=== PATIENT | male | born 1965 | race Caucasian/White ===

== ENCOUNTER 2021-01-02 18:00 | Inpatient (IN) | payer MEDICAID, MEDICARE ==
[2021-01-02] VITALS (8 sets, daily range): BP systolic 130–162; BP diastolic 83–103
[~2021-01-02] VITALS: Ht 182.9 cm; Wt 124.0 kg
--- NOTE | 2021-01-02 18:22 | NUR ---
Patient arrived from [facility] via EMS. Patient is Alert and oriented x4 VS stable. Dr. moore and consult notified. will monitor.
[2021-01-02 19:15] LABS: ALBUMIN 3.7 g/dL (3.4-5.0); ALBUMIN/GLOBULIN RATIO 0.9 (1.0-1.7); CALCIUM 7.7 mg/dL (8.5-10.1); CREATININE 0.6 mg/dL (0.7-1.3); GFR 138.9; MAGNESIUM 1.9 mg/dL (1.8-2.4); POTASSIUM 4.4 mmol/L (3.5-5.1); TOTAL BILIRUBIN 1.5 mg/dL (0.2-1.0); TOTAL PROTEIN 7.7 g/dL (6.4-8.2)
--- NOTE | 2021-01-02 20:00 | NUR ---
Bladder scanned patient with max 500cc urine retention, patient says he has no urge to go. Sotelo catheter inserted per Dr. Alegria, immediate 450cc of urine out. Spoke with Dr. Alegria regarding critical sodium, at this point would just like NS 100cc/hr, recheck sodium routinely in AM.
[2021-01-02] MEDS: IV NORMAL SALINE 1000ML BAG 1,000 ML IV SCH (20:13)
[2021-01-02] MEDS: BENZONATATE 100 MG CAPSULE. PO PRN (21:17)
--- NOTE | 2021-01-02 21:27 | PDOC1 ---
History and Physical Date of Service: DOS: DATE: 01/02/21 TIME: 21:25 Chief Complaint: Chief Complain: Fatigue History of Present Illness: HPI: 55-year-old male with past medical history of hyponatremia, pituitary adenoma status post resection, NHL status post chemotherapy and currently in remission who comes in with fatigue for the past 3 days. He says that he drinks lots of water and juice every day but this is not different from his normal. He also complains of cough with some mild production. He was actually seen at [facility] in 2019 for the same reason with low sodium and nausea vomiting that resolved. He was asked to follow-up with endocrinology for MRI evaluation of his pituitary gland but he never followed up. Denies fevers, chest pain, abdominal pain, diarrhea, seizure, confusion or headaches. Past Medical/Surgical History: PMH/PSH: Pituitary adenoma status post resection, non-Hodgkin's lymphoma currently in remission. He was treated with chemotherapy from oncologist in [facility]. History of hypothyroidism history of hyponatremia in 2019 Allergies: Allergies: Coded Allergies: No Known Drug Allergies (Unverified , 10/11/13) Family History: Family History: Reviewed with no relevant findings Social History: Social History: Denies any alcohol, drug or tobacco abuse Current Medications: Current Medications Current Medications Sodium Chloride 1,000 ml @ 100 mls/hr Q10H IV Last administered on 01/02/21at 20:13; Start 01/02/21 at 20:00 Benzonatate (Tessalon Perle) 100 mg PRN Q8HRS PRN PO COUGH Last administered on 01/02/21at 21:17; Start 01/02/21 at 21:15 Active Scripts Active Reported No Known Medications Prior To Admisstion (Info) Each 1 Each 1X ROS: Review of Systems Review of System REVIEW OF SYSTEMS: GENERAL: Positive for fatigue SKIN: No bruising, hair changes or rashes. EYES: No blurred, double or loss of vision. NOSE AND THROAT: No history of nosebleeds, hoarseness or sore throat. HEART: No history of palpitations, chest pain or shortness of breath on exertion. LUNGS: Denies cough, hemoptysis, wheezing or shortness of breath. GASTROINTESTINAL: Denies changes in appetite, nausea, vomiting, diarrhea or constipation. GENITOURINARY: No history of frequency, urgency, hesitancy or nocturia. NEUROLOGIC: Denies history of numbness, tingling, or tremor. PSYCHIATRIC: No history of panic, anxiety or depression. ENDOCRINE: No history of heat or cold intolerance, polyuria or polydipsia. EXTREMITIES: Denies joint pain, pain on walking or stiffness. Physical Exam: Vital Signs: Vital Signs Date Time Temp Pulse Resp B/P (MAP) Pulse Ox O2 Delivery O2 Flow Rate FiO2 01/02/21 20:00 Room Air 01/02/21 18:30 74 18 162/103 (122) 97 01/02/21 18:15 97.5 97.5 Physcial Exam: General: Well developed, well nourished, no acute distress, well appearing HEENT: Pupils equally round and reactive to light, EOMI, no discharge, normal conjunctiva Neck: Supple, no nuchal rigidity, no JVD, trachea midline, no tenderness Cardiac: RRR, no murmurs, no gallops, no rubs Chest/Lungs: CTAB, no wheeze, no rhonchi, no crackles Abdomen: soft, non-distended, no guarding, no peritoneal signs, non-tender Back: No tenderness Extremities: no edema, pulses intact, non-tender,capillary refill <3 sec bilateral upper and lower extremities, Neuro: Alert and oriented x 4, no focal deficits, normal speech Labs: Labs: Laboratory Tests Test 01/02/21 18:35 Sodium Level 111 mmol/L (136-145) Potassium Level 4.4 mmol/L (3.5-5.1) Chloride Level 79 mmol/L (98-107) Carbon Dioxide Level 26 mmol/L (21-32) Anion Gap 6 (6-14) Blood Urea Nitrogen 8 mg/dL (8-26) Creatinine 0.6 mg/dL (0.7-1.3) Estimated GFR (Cockcroft-Gault) 138.9 BUN/Creatinine Ratio 13 (6-20) Glucose Level 85 mg/dL (70-99) Calcium Level 7.7 mg/dL (8.5-10.1) Magnesium Level 1.9 mg/dL (1.8-2.4) Total Bilirubin 1.5 mg/dL (0.2-1.0) Aspartate Amino Transf (AST/SGOT) 119 U/L (15-37) Alanine Aminotransferase (ALT/SGPT) 68 U/L (16-63) Alkaline Phosphatase 90 U/L (46-116) Total Protein 7.7 g/dL (6.4-8.2) Albumin 3.7 g/dL (3.4-5.0) Albumin/Globulin Ratio 0.9 (1.0-1.7) Laboratory Tests Test 01/02/21 18:35 Sodium Level 111 mmol/L (136-145) Potassium Level 4.4 mmol/L (3.5-5.1) Chloride Level 79 mmol/L (98-107) Carbon Dioxide Level 26 mmol/L (21-32) Anion Gap 6 (6-14) Blood Urea Nitrogen 8 mg/dL (8-26) Creatinine 0.6 mg/dL (0.7-1.3) Estimated GFR (Cockcroft-Gault) 138.9 BUN/Creatinine Ratio 13 (6-20) Glucose Level 85 mg/dL (70-99) Calcium Level 7.7 mg/dL (8.5-10.1) Magnesium Level 1.9 mg/dL (1.8-2.4) Total Bilirubin 1.5 mg/dL (0.2-1.0) Aspartate Amino Transf (AST/SGOT) 119 U/L (15-37) Alanine Aminotransferase (ALT/SGPT) 68 U/L (16-63) Alkaline Phosphatase 90 U/L (46-116) Total Protein 7.7 g/dL (6.4-8.2) Albumin 3.7 g/dL (3.4-5.0) Albumin/Globulin Ratio 0.9 (1.0-1.7) Images: Images All images reviewed from [facility] Chest x-ray remarkable for atypical pneumonia please see impressions for details Assessment/Plan Assessment/Plan Generalized weakness Failure to thrive Acute electrolyte derangementsevere hyponatremia Community-acquired pneumonia, possible gram-negative organisms, possible aspiration Polydipsia Elevated AST ALT ratio History of pituitary adenoma Concern for adrenal insufficiency History of hypothyroidism Admit to hospitalist service for further management Continue ICU monitoring due to severe low sodium Trend sodium every 12 Hypertonic saline Nephrology consult PT OT Continue empiric IV antibiotics Lovenox for DVT prophylaxis Protonix GI prophylaxis ADA diet CODE STATUS full Discussed with RN and SW Disposition continue ICU care DPOA: A total of 55 minutes of critical care time was spent in reviewing chart, labs, and images. Discussed with RN and SW. Justifications for Admission Other Justification RISHI TRIPATHI MD Jan 02, 2021 21:27
[2021-01-02] MEDS: LIDOCAINE (700MG/PATCH) PATCH. TD PRN (23:09)
[2021-01-02] MEDS ORDERED: ACETAMINOPHEN 325 MG TABLET. PO PRN (23:15)
[2021-01-02] MEDS ORDERED: METHOCARBAMOL 500 MG TABLET PO PRN (23:15)
[2021-01-03] VITALS (16 sets, daily range): BP systolic 116–169; BP diastolic 65–91
[2021-01-03] MEDS ORDERED: CALCIUM CARBONATE 500 MG TAB.CHEW PO PRN (03:15)
[2021-01-03] MEDS: IV NORMAL SALINE 1000ML BAG 1,000 ML IV SCH (06:10)
[2021-01-03] MEDS: guaiFENesin ORAL 200 MG/10 ML LIQUID. PO PRN ×3 (06:10→21:04)
[2021-01-03 08:39] LABS: ALBUMIN 3.5 g/dL (3.4-5.0); CALCIUM 7.8 mg/dL (8.5-10.1); CREATININE 0.6 mg/dL (0.7-1.3); GFR 138.9; POTASSIUM 4.5 mmol/L (3.5-5.1); TOTAL BILIRUBIN 1.5 mg/dL (0.2-1.0)
[2021-01-03 08:53] LABS: HEMATOCRIT 37.7 % (39.0-53.0); HEMOGLOBIN 13.5 g/dL (13.0-17.5); RED BLOOD COUNT 4.34 x10^6/uL (4.30-5.70); RED CELL DISTRIBUTION WIDTH 12.3 % (11.5-14.5); WHITE BLOOD COUNT 7.3 x10^3/uL (4.0-11.0)
[2021-01-03] MEDS: BENZONATATE 100 MG CAPSULE. PO PRN ×2 (08:58→21:04)
[2021-01-03] MEDS: LIDOCAINE (700MG/PATCH) PATCH. TD PRN (08:58)
[2021-01-03] MEDS ORDERED: SODIUM CHLORIDE 3 % 500 ML IV PRN (09:15)
--- NOTE | 2021-01-03 09:55 | PDOC2 ---
CONSULT Date of Consult Date of Consult DATE: 01/03/21 TIME: 09:55 History of Present Illness Reason for Visit: Patient is a 55 yo CM presented to [facility] ER on 01/02 with c/o Fatigue , going on for past 3 days without any inciting event . Denies any sick Contacts . He was having vague diffuse body aches and Occ Cramps He had low Na couple of years ago- was hospitalized at [facility]- Patient and don't recall any details . He is Unvaccinated against Covid Denies any N/V/D.No abdominal pain. No CP or SOB. No F/C. Denies Urinary complaints . Currently not taking any meds at home. No OTC health supplements. No antidepressants. Normal Salt in diet, he acknowledges drinking a plenty of Fluid > 2 lts water plus Juice etc , but this is not new. He denies ETOH- quit 5-6 years ago, states never smoked. No Wt loss, No night Sweats . No LE edema. Currently feeling tired, hasnt sleep for last few nights, requesting to give him something to sleep No neurological symptoms, No Seizures . No PILLAI, Blurred vision I reviewed records from [facility] from 2019 - he was admitted with Na of 118 admitted with N/V , hyponatremia resolved at ri- seen by Dr Giraldo Per his old records from 2019 there is also mention of his History of Pituitary tumor that was removed and NHL was seen at [facility] - was told by Oncology he was in remission. He hasnt seen a provider in past 3-4 years , last provider was the Oncologist Past Medical History Past Medical History NHL- In Remission Hx of Pituitary Tumor - Resected Past Surgical History Past Surgical History Pituitary tumor Resection Family History Family History Non contributory Social History Social History Quit ETOH 5-6 years back Denies Smoking, Tobacco or Illicit Drugs Lives with (? Significant other ) No PCP Current Medications Current Medications Current Medications Sodium Chloride 1,000 ml @ 100 mls/hr Q10H IV Last administered on 01/03/21at 06:10; Start 01/02/21 at 20:00; Stop 01/03/21 at 09:13; Status DC Benzonatate (Tessalon Perle) 100 mg PRN Q8HRS PRN PO COUGH Last administered on 01/03/21at 08:58; Start 01/02/21 at 21:15 Methocarbamol (Robaxin) 500 mg PRN Q8HRS PRN PO MUSCLE SPASMS; Start 01/02/21 at 23:15 Lidocaine (Lidoderm) 1 patch PRN DAILY PRN TD TOPICAL PAIN Last administered on 01/03/21at 08:58; Start 01/02/21 at 23:15 Acetaminophen (Tylenol) 650 mg PRN Q6HRS PRN PO MILD PAIN / TEMP > 100.3'F Last administered on 01/02/21at 23:09; Start 01/02/21 at 23:15 Calcium Carbonate/ Glycine (Tums) 500 mg PRN AFTMEALHC PRN PO INDIGESTION Last administered on 01/03/21at 03:24; Start 01/03/21 at 03:15 Guaifenesin (Robitussin) 200 mg PRN Q4HRS PRN PO COUGH Last administered on 01/03/21at 08:58; Start 01/03/21 at 06:15 Sodium Chloride 500 ml @ 50 mls/hr CONT PRN IV SEE I/O RECORD; Start 01/03/21 at 09:15; Stop 01/03/21 at 09:36; Status DC Sodium Chloride 500 ml @ 50 mls/hr CONT PRN IV SEE I/O RECORD; Start 01/03/21 at 09:45 Active Scripts Active Reported No Known Medications Prior To Admisstion (Info) Each 1 Each MC 1X Allergies Allergies: Coded Allergies: No Known Drug Allergies (Unverified , 10/11/13) ROS Review of System As per HPI, rest of the ROS is negative Physical Exam Physical Exam General NAD, propped up in bed, appears tired HEEN OM moist, On o2 by NC Neck Supple Lungs CTA , Non labored CV S1S2, No M/R/G Abdomen obese , NT, Soft Sotelo placed , No CVA or SP tenderness Neuro AxOx3, grossly normal Derm No Rash Ext No LE edema, No cyanosis Vital Signs Vital Signs Date Time Temp Pulse Resp B/P (MAP) Pulse Ox O2 Delivery O2 Flow Rate FiO2 01/03/21 09:00 79 18 148/90 (109) 98 Room Air 01/03/21 08:00 97.5 97.5 Assessment & Plan HypoNatremia- severe, No improvement with IV NS, switch to Hypertonic 3%. Patient Asymptomatic except Fatigue . Strict Monitoring , I/O Order TSH , serum Cortisol AM (No tripathi done at [facility] or at [facility]) ; Serum osm , Urine osm and Urine Lytes still pending No cirrhosis, ETOH, DM , CHF , Psych meds or Smoking Hx. Drinks large amount of fluids . Reviewed Records from [facility] from 2019 Hx of NHL and Pituitary tumor (Resected ) , CxR Atypical pneumonia . Defer further TRIPATHI to primary Urinary retention - Ordered Bladder scan last evening with 500 mls of Urine , Sotelo Placed Atypical pneumonia - reported on Cxr, deferred to primary Hx of NHL in remission per Patient and Hx of pituitary tumor Post resection years ago Elevated LFT's - defer to primary Labs Labs Laboratory Tests Test 01/02/21 18:35 01/03/21 08:15 Sodium Level 111 mmol/L (136-145) 111 mmol/L (136-145) Potassium Level 4.4 mmol/L (3.5-5.1) 4.5 mmol/L (3.5-5.1) Chloride Level 79 mmol/L (98-107) 81 mmol/L (98-107) Carbon Dioxide Level 26 mmol/L (21-32) 25 mmol/L (21-32) Anion Gap 6 (6-14) 5 (6-14) Blood Urea Nitrogen 8 mg/dL (8-26) 8 mg/dL (8-26) Creatinine 0.6 mg/dL (0.7-1.3) 0.6 mg/dL (0.7-1.3) Estimated GFR (Cockcroft-Gault) 138.9 138.9 BUN/Creatinine Ratio 13 (6-20) 13 (6-20) Glucose Level 85 mg/dL (70-99) 82 mg/dL (70-99) Calcium Level 7.7 mg/dL (8.5-10.1) 7.8 mg/dL (8.5-10.1) Magnesium Level 1.9 mg/dL (1.8-2.4) 1.9 mg/dL (1.8-2.4) Total Bilirubin 1.5 mg/dL (0.2-1.0) 1.5 mg/dL (0.2-1.0) Aspartate Amino Transf (AST/SGOT) 119 U/L (15-37) 124 U/L (15-37) Alanine Aminotransferase (ALT/SGPT) 68 U/L (16-63) 68 U/L (16-63) Alkaline Phosphatase 90 U/L (46-116) 86 U/L (46-116) Total Protein 7.7 g/dL (6.4-8.2) 7.0 g/dL (6.4-8.2) Albumin 3.7 g/dL (3.4-5.0) 3.5 g/dL (3.4-5.0) Albumin/Globulin Ratio 0.9 (1.0-1.7) 1.0 (1.0-1.7) White Blood Count 7.3 x10^3/uL (4.0-11.0) Red Blood Count 4.34 x10^6/uL (4.30-5.70) Hemoglobin 13.5 g/dL (13.0-17.5) Hematocrit 37.7 % (39.0-53.0) Mean Corpuscular Volume 87 fL (79-100) Mean Corpuscular Hemoglobin 31 pg (25-35) Mean Corpuscular Hemoglobin Concent 36 g/dL (31-37) Red Cell Distribution Width 12.3 % (11.5-14.5) Platelet Count 158 x10^3/uL (140-400) Laboratory Tests Test 01/02/21 18:35 01/03/21 08:15 Sodium Level 111 mmol/L (136-145) 111 mmol/L (136-145) Potassium Level 4.4 mmol/L (3.5-5.1) 4.5 mmol/L (3.5-5.1) Chloride Level 79 mmol/L (98-107) 81 mmol/L (98-107) Carbon Dioxide Level 26 mmol/L (21-32) 25 mmol/L (21-32) Anion Gap 6 (6-14) 5 (6-14) Blood Urea Nitrogen 8 mg/dL (8-26) 8 mg/dL (8-26) Creatinine 0.6 mg/dL (0.7-1.3) 0.6 mg/dL (0.7-1.3) Estimated GFR (Cockcroft-Gault) 138.9 138.9 BUN/Creatinine Ratio 13 (6-20) 13 (6-20) Glucose Level 85 mg/dL (70-99) 82 mg/dL (70-99) Calcium Level 7.7 mg/dL (8.5-10.1) 7.8 mg/dL (8.5-10.1) Magnesium Level 1.9 mg/dL (1.8-2.4) 1.9 mg/dL (1.8-2.4) Total Bilirubin 1.5 mg/dL (0.2-1.0) 1.5 mg/dL (0.2-1.0) Aspartate Amino Transf (AST/SGOT) 119 U/L (15-37) 124 U/L (15-37) Alanine Aminotransferase (ALT/SGPT) 68 U/L (16-63) 68 U/L (16-63) Alkaline Phosphatase 90 U/L (46-116) 86 U/L (46-116) Total Protein 7.7 g/dL (6.4-8.2) 7.0 g/dL (6.4-8.2) Albumin 3.7 g/dL (3.4-5.0) 3.5 g/dL (3.4-5.0) Albumin/Globulin Ratio 0.9 (1.0-1.7) 1.0 (1.0-1.7) White Blood Count 7.3 x10^3/uL (4.0-11.0) Red Blood Count 4.34 x10^6/uL (4.30-5.70) Hemoglobin 13.5 g/dL (13.0-17.5) Hematocrit 37.7 % (39.0-53.0) Mean Corpuscular Volume 87 fL (79-100) Mean Corpuscular Hemoglobin 31 pg (25-35) Mean Corpuscular Hemoglobin Concent 36 g/dL (31-37) Red Cell Distribution Width 12.3 % (11.5-14.5) Platelet Count 158 x10^3/uL (140-400) Review All relevant outside records, renal labs, imaging studies, telemetry/EKG's were reviewed. Images Images CXR 01/02 Right basal Infiltrate Likely Atypical Pneumonia Normal Pulm Vasculature NICOLAS BRITTON MD Jan 03, 2021 09:55
[2021-01-03] MEDS: SODIUM CHLORIDE 3 % 500 ML IV PRN ×2 (09:58→20:21)
[2021-01-03 11:42] LABS: BILIRUBIN,URINE NEGATIVE (NEG); CLARITY,URINE CLEAR; COLOR,URINE YELLOW; NITRITE,URINE NEGATIVE (NEG); PH,URINE 6.5 (<5.0-8.0); PROTEIN,URINE 100 mg/dL (NEG-TRACE)
[2021-01-03 11:58] LABS: BACTERIA,URINE 0 /HPF (0-FEW); RBC,URINE 20-40 /HPF (0-2)
--- NOTE | 2021-01-03 12:18 | PDOC ---
[employer] PROGRESS NOTE Date of Service DOS: DATE: 01/03/21 TIME: 12:18 Vitals/I&O Vitals/I&O: Vital Signs Date Time Temp Pulse Resp B/P (MAP) Pulse Ox O2 Delivery O2 Flow Rate FiO2 01/03/21 11:00 74 18 135/71 (92) 99 Room Air 01/03/21 08:00 97.5 97.5 I & O 01/02/21 01/02/21 01/03/21 15:00 23:00 07:00 Intake Total 250 ml 1185 ml Output Total 1150 ml 1375 ml Balance -900 ml -190 ml Labs Labs: Laboratory Tests Test 01/02/21 18:35 01/03/21 08:15 01/03/21 11:00 Sodium Level 111 mmol/L (136-145) 111 mmol/L (136-145) Potassium Level 4.4 mmol/L (3.5-5.1) 4.5 mmol/L (3.5-5.1) Chloride Level 79 mmol/L (98-107) 81 mmol/L (98-107) Carbon Dioxide Level 26 mmol/L (21-32) 25 mmol/L (21-32) Anion Gap 6 (6-14) 5 (6-14) Blood Urea Nitrogen 8 mg/dL (8-26) 8 mg/dL (8-26) Creatinine 0.6 mg/dL (0.7-1.3) 0.6 mg/dL (0.7-1.3) Estimated GFR (Cockcroft-Gault) 138.9 138.9 BUN/Creatinine Ratio 13 (6-20) 13 (6-20) Glucose Level 85 mg/dL (70-99) 82 mg/dL (70-99) Calcium Level 7.7 mg/dL (8.5-10.1) 7.8 mg/dL (8.5-10.1) Magnesium Level 1.9 mg/dL (1.8-2.4) 1.9 mg/dL (1.8-2.4) Total Bilirubin 1.5 mg/dL (0.2-1.0) 1.5 mg/dL (0.2-1.0) Aspartate Amino Transf (AST/SGOT) 119 U/L (15-37) 124 U/L (15-37) Alanine Aminotransferase (ALT/SGPT) 68 U/L (16-63) 68 U/L (16-63) Alkaline Phosphatase 90 U/L (46-116) 86 U/L (46-116) Total Protein 7.7 g/dL (6.4-8.2) 7.0 g/dL (6.4-8.2) Albumin 3.7 g/dL (3.4-5.0) 3.5 g/dL (3.4-5.0) Albumin/Globulin Ratio 0.9 (1.0-1.7) 1.0 (1.0-1.7) White Blood Count 7.3 x10^3/uL (4.0-11.0) Red Blood Count 4.34 x10^6/uL (4.30-5.70) Hemoglobin 13.5 g/dL (13.0-17.5) Hematocrit 37.7 % (39.0-53.0) Mean Corpuscular Volume 87 fL (79-100) Mean Corpuscular Hemoglobin 31 pg (25-35) Mean Corpuscular Hemoglobin Concent 36 g/dL (31-37) Red Cell Distribution Width 12.3 % (11.5-14.5) Platelet Count 158 x10^3/uL (140-400) Uric Acid 2.1 mg/dL (3.5-7.2) Thyroid Stimulating Hormone (TSH) 3.910 uIU/mL (0.358-3.74) Cortisol AM Sample 3.2 ug/dL (4.3-22.4) Urine Collection Type Unknown Urine Color Yellow Urine Clarity Clear Urine pH 6.5 (<5.0-8.0) Urine Specific Hollis 1.015 (1.000-1.030) Urine Protein 100 mg/dL (NEG-TRACE) Urine Glucose (UA) Negative mg/dL (NEG) Urine Ketones (Stick) 15 mg/dL (NEG) Urine Blood Large (NEG) Urine Nitrite Negative (NEG) Urine Bilirubin Negative (NEG) Urine Urobilinogen Dipstick 1.0 mg/dL (0.2 mg/dL) Urine Leukocyte Esterase Small (NEG) Urine RBC 20-40 /HPF (0-2) Urine WBC 1-4 /HPF (0-4) Urine Squamous Epithelial Cells Few /LPF Urine Bacteria 0 /HPF (0-FEW) Urine Mucus Slight /LPF Comment Review of Relevant I have reviewed the following items jorge (where applicable) has been applied. Medications: Current Medications Medications (Trade) Dose Ordered Sig/Merissa Route PRN Reason Start Time Stop Time Status Last Admin Dose Admin Sodium Chloride 1,000 ml @ 100 mls/hr Q10H IV 01/02/21 20:00 01/03/21 09:13 DC 01/03/21 06:10 Benzonatate (Tessalon Perle) 100 mg PRN Q8HRS PRN PO COUGH 01/02/21 21:15 01/03/21 08:58 Lidocaine (Lidoderm) 1 patch PRN DAILY PRN TD TOPICAL PAIN 01/02/21 23:15 01/03/21 08:58 Acetaminophen (Tylenol) 650 mg PRN Q6HRS PRN PO MILD PAIN / TEMP > 100.3'F 01/02/21 23:15 01/02/21 23:09 Calcium Carbonate/ Glycine (Tums) 500 mg PRN AFTMEALHC PRN PO INDIGESTION 01/03/21 03:15 01/03/21 03:24 Guaifenesin (Robitussin) 200 mg PRN Q4HRS PRN PO COUGH 01/03/21 06:15 01/03/21 08:58 Sodium Chloride 500 ml @ 50 mls/hr CONT PRN IV SEE I/O RECORD 01/03/21 09:45 01/03/21 09:58 Justifications for Admission Other Justification RISHI TRIPATHI MD Jan 03, 2021 12:18
--- NOTE | 2021-01-03 12:21 | PDOC ---
[employer] PROGRESS NOTE Date of Service DOS: DATE: 01/03/21 TIME: 12:19 Chief Complaint Chief Complaint Assessment/Plan Generalized weakness Failure to thrive Acute electrolyte derangementsevere hyponatremia Community-acquired pneumonia, possible gram-negative organisms, possible aspiration Polydipsia Elevated AST ALT ratio History of pituitary adenoma Concern for adrenal insufficiency History of hypothyroidism Continue ICU monitoring due to severe low sodium Trend sodium every 12h Pending urine studies and serum and urine osmolalities Hypertonic saline Nephrology consult PT OT Continue empiric IV antibiotics Lovenox for DVT prophylaxis Protonix GI prophylaxis ADA diet CODE STATUS full Discussed with RN and SW Disposition continue ICU care DPOA: A total of 40 minutes of critical care time was spent in reviewing chart, labs, and images. Discussed with RN and SW. History of Present Illness History of Present Illness 55-year-old male with past medical history of hyponatremia, pituitary adenoma status post resection, NHL status post chemotherapy and currently in remission who comes in with fatigue for the past 3 days. He says that he drinks lots of water and juice every day but this is not different from his normal. He also complains of cough with some mild production. He was actually seen at [facility] in 2019 for the same reason with low sodium and nausea vomiting that resolved. He was asked to follow-up with endocrinology for MRI evaluation of his pituitary gland but he never followed up. Denies fevers, chest pain, abdominal pain, diarrhea, seizure, confusion or headaches. 01/03/2021 No acute events overnight. Patient continues to feel fatigued and continues to have mildly productive cough. There is yellow phlegm. Not hypoxic or having any dyspnea. Patient's chart, labs, images were reviewed and discussed with RN Vitals/I&O Vitals/I&O: Vital Signs Date Time Temp Pulse Resp B/P (MAP) Pulse Ox O2 Delivery O2 Flow Rate FiO2 01/03/21 11:00 74 18 135/71 (92) 99 Room Air 01/03/21 08:00 97.5 97.5 I & O 01/02/21 01/02/21 01/03/21 15:00 23:00 07:00 Intake Total 250 ml 1185 ml Output Total 1150 ml 1375 ml Balance -900 ml -190 ml Physical Exam General: Alert, Oriented X3, Cooperative Heart: Regular rate Lungs: Crackles Abdomen: Normal bowel sounds Extremities: No clubbing Skin: No rashes Labs Labs: Laboratory Tests Test 01/02/21 18:35 01/03/21 08:15 01/03/21 11:00 Sodium Level 111 mmol/L (136-145) 111 mmol/L (136-145) Potassium Level 4.4 mmol/L (3.5-5.1) 4.5 mmol/L (3.5-5.1) Chloride Level 79 mmol/L (98-107) 81 mmol/L (98-107) Carbon Dioxide Level 26 mmol/L (21-32) 25 mmol/L (21-32) Anion Gap 6 (6-14) 5 (6-14) Blood Urea Nitrogen 8 mg/dL (8-26) 8 mg/dL (8-26) Creatinine 0.6 mg/dL (0.7-1.3) 0.6 mg/dL (0.7-1.3) Estimated GFR (Cockcroft-Gault) 138.9 138.9 BUN/Creatinine Ratio 13 (6-20) 13 (6-20) Glucose Level 85 mg/dL (70-99) 82 mg/dL (70-99) Calcium Level 7.7 mg/dL (8.5-10.1) 7.8 mg/dL (8.5-10.1) Magnesium Level 1.9 mg/dL (1.8-2.4) 1.9 mg/dL (1.8-2.4) Total Bilirubin 1.5 mg/dL (0.2-1.0) 1.5 mg/dL (0.2-1.0) Aspartate Amino Transf (AST/SGOT) 119 U/L (15-37) 124 U/L (15-37) Alanine Aminotransferase (ALT/SGPT) 68 U/L (16-63) 68 U/L (16-63) Alkaline Phosphatase 90 U/L (46-116) 86 U/L (46-116) Total Protein 7.7 g/dL (6.4-8.2) 7.0 g/dL (6.4-8.2) Albumin 3.7 g/dL (3.4-5.0) 3.5 g/dL (3.4-5.0) Albumin/Globulin Ratio 0.9 (1.0-1.7) 1.0 (1.0-1.7) White Blood Count 7.3 x10^3/uL (4.0-11.0) Red Blood Count 4.34 x10^6/uL (4.30-5.70) Hemoglobin 13.5 g/dL (13.0-17.5) Hematocrit 37.7 % (39.0-53.0) Mean Corpuscular Volume 87 fL (79-100) Mean Corpuscular Hemoglobin 31 pg (25-35) Mean Corpuscular Hemoglobin Concent 36 g/dL (31-37) Red Cell Distribution Width 12.3 % (11.5-14.5) Platelet Count 158 x10^3/uL (140-400) Uric Acid 2.1 mg/dL (3.5-7.2) Thyroid Stimulating Hormone (TSH) 3.910 uIU/mL (0.358-3.74) Cortisol AM Sample 3.2 ug/dL (4.3-22.4) Urine Collection Type Unknown Urine Color Yellow Urine Clarity Clear Urine pH 6.5 (<5.0-8.0) Urine Specific Ophiem 1.015 (1.000-1.030) Urine Protein 100 mg/dL (NEG-TRACE) Urine Glucose (UA) Negative mg/dL (NEG) Urine Ketones (Stick) 15 mg/dL (NEG) Urine Blood Large (NEG) Urine Nitrite Negative (NEG) Urine Bilirubin Negative (NEG) Urine Urobilinogen Dipstick 1.0 mg/dL (0.2 mg/dL) Urine Leukocyte Esterase Small (NEG) Urine RBC 20-40 /HPF (0-2) Urine WBC 1-4 /HPF (0-4) Urine Squamous Epithelial Cells Few /LPF Urine Bacteria 0 /HPF (0-FEW) Urine Mucus Slight /LPF Comment Review of Relevant I have reviewed the following items jorge (where applicable) has been applied. Medications: Current Medications Medications (Trade) Dose Ordered Sig/Merissa Route PRN Reason Start Time Stop Time Status Last Admin Dose Admin Sodium Chloride 1,000 ml @ 100 mls/hr Q10H IV 01/02/21 20:00 01/03/21 09:13 DC 01/03/21 06:10 Benzonatate (Tessalon Perle) 100 mg PRN Q8HRS PRN PO COUGH 01/02/21 21:15 01/03/21 08:58 Lidocaine (Lidoderm) 1 patch PRN DAILY PRN TD TOPICAL PAIN 01/02/21 23:15 01/03/21 08:58 Acetaminophen (Tylenol) 650 mg PRN Q6HRS PRN PO MILD PAIN / TEMP > 100.3'F 01/02/21 23:15 01/02/21 23:09 Calcium Carbonate/ Glycine (Tums) 500 mg PRN AFTMEALHC PRN PO INDIGESTION 01/03/21 03:15 01/03/21 03:24 Guaifenesin (Robitussin) 200 mg PRN Q4HRS PRN PO COUGH 01/03/21 06:15 01/03/21 08:58 Sodium Chloride 500 ml @ 50 mls/hr CONT PRN IV SEE I/O RECORD 01/03/21 09:45 01/03/21 09:58 Justifications for Admission Other Justification RISHI TRIPATHI MD Jan 03, 2021 12:21
[2021-01-03] MEDS: AZITHROMYCIN 500 MG in IV NORMAL SALINE 250ML 250 ML IV SCH (13:03)
[2021-01-03] MEDS: cefTRIAXone IV Push 1 GM VIAL. IVP SCH (13:03)
[2021-01-03] MEDS: LEVOTHYROXINE 25 MCG TABLET. PO SCH (14:51)
[2021-01-03] MEDS: ENOXAPARIN 40 MG/0.4 ML SYRINGE. SQ SCH (14:53)
--- NOTE | 2021-01-03 15:21 | NUR ---
SS following for discharge planning. SS reviewed pt chart and discussed with pt RN. Pt is from home with spouse and is currently on room air. Sodium 111. Pt on hypertonic saline. Pt on IV Rocephin and IV Azithromycin. SS will continue to follow for discharge planning.
[2021-01-03] MEDS: HYDROCORTISONE 10 MG TABLET PO SCH (19:23)
[2021-01-03] MEDS ORDERED: ZOLPIDEM 5 MG TABLET. PO PRN (20:45)
--- NOTE | 2021-01-03 22:35 | RAD ---
EXAM: ULTRASOUND ABDOMEN COMPLETE CLINICAL HISTORY: Elevated liver function tests, hyponatremia COMPARISON: No priors Findings: Bowel gas shadowing obscures most of the pancreas, aorta and IVC. Imaged segments of the up per bowel aorta and IVC are normal. No gallstones or inflammatory changes of the gallbladder. There is increased liver echogenicity typic al steatosis. Rib shadowing limits visualization of some segments of the liver. In light of this no l iver mass or morphologic changes of liver cirrhosis is evident. There is patent hepatopedal portal ve in blood flow. No intrahepatic bile duct dilation. Bowel gas shadowing limits visualization of the co mmon bile duct. Mild elongation right hepatic lobe measuring 17.7 cm. Normal length is less than 16 c m. Right renal length 12.9 cm. Left renal length 14.3 cm. No mass, calculus or hydronephrosis of the kid neys. Bowel gas shadowing limits visualization of the lower poles the kidneys. Spleen length 15.6 cm which is enlarged. Normal is less than 13 cm. IMPRESSION: 1. Increased liver echogenicity likely representing steatosis. 2. Elongation of the liver and spleen could indicate hepatosplenomegaly. Secondarily this may be norm al if the patient has a tall body stature. See above. Electronically signed by: Eduardo Castellanos MD (01/03/2021 10:32 PM) [facility]
[2021-01-03 22:39] LABS: CALCIUM 7.5 mg/dL (8.5-10.1); CREATININE 0.6 mg/dL (0.7-1.3); GFR 138.9; POTASSIUM 4.3 mmol/L (3.5-5.1)
[2021-01-03 23:07] LABS: UR POTASSIUM 24.1 mmol/L (Not Estab.)
[2021-01-04 03:00] VITALS: BP 133/64
[2021-01-04 05:35] LABS: CALCIUM 7.4 mg/dL (8.5-10.1); CREATININE 0.7 mg/dL (0.7-1.3); GFR 116.2; POTASSIUM 4.7 mmol/L (3.5-5.1)
[2021-01-04] MEDS: LEVOTHYROXINE 25 MCG TABLET. PO SCH (06:04)
[2021-01-04] MEDS: SODIUM CHLORIDE 3 % 500 ML IV PRN ×2 (06:30→18:15)
[2021-01-04 08:00] VITALS: BP 117/66
[2021-01-04] MEDS: HYDROCORTISONE 10 MG TABLET PO SCH ×2 (09:27→16:39)
--- NOTE | 2021-01-04 10:49 | PDOC ---
Renal-Progress Notes Subjective Notes Notes NO NEW COMPLAINTS History of Present Illness Hx of present illness VERY ILL BUT STABLE Vitals Vitals Vital Signs Date Time Temp Pulse Resp B/P (MAP) Pulse Ox O2 Delivery O2 Flow Rate FiO2 01/04/21 03:00 98.3 84 24 133/64 (87) 97 Room Air 98.3 Weight Weight [ ] I.O. Intake and Output Intake and Output 01/04/21 07:00 Intake Total 1844 ml Output Total 5450 ml Balance -3606 ml Intake Oral 200 ml IV Total 1644 ml Output Urine Total 5450 ml Labs Labs Laboratory Tests Test 01/03/21 11:00 01/03/21 14:05 01/03/21 21:50 01/04/21 04:30 Urine Collection Type Unknown Urine Color Yellow Urine Clarity Clear Urine pH 6.5 (<5.0-8.0) Urine Specific [place] 1.015 (1.000-1.030) Urine Protein 100 mg/dL (NEG-TRACE) Urine Glucose (UA) Negative mg/dL (NEG) Urine Ketones (Stick) 15 mg/dL (NEG) Urine Blood Large (NEG) Urine Nitrite Negative (NEG) Urine Bilirubin Negative (NEG) Urine Urobilinogen Dipstick 1.0 mg/dL (0.2 mg/dL) Urine Leukocyte Esterase Small (NEG) Urine RBC 20-40 /HPF (0-2) Urine WBC 1-4 /HPF (0-4) Urine Squamous Epithelial Cells Few /LPF Urine Bacteria 0 /HPF (0-FEW) Urine Mucus Slight /LPF Sodium Level 111 mmol/L (136-145) 115 mmol/L (136-145) 117 mmol/L (136-145) Potassium Level 4.3 mmol/L (3.5-5.1) 4.7 mmol/L (3.5-5.1) Chloride Level 84 mmol/L (98-107) 86 mmol/L (98-107) Carbon Dioxide Level 23 mmol/L (21-32) 21 mmol/L (21-32) Anion Gap 8 (6-14) 10 (6-14) Blood Urea Nitrogen 7 mg/dL (8-26) 5 mg/dL (8-26) Creatinine 0.6 mg/dL (0.7-1.3) 0.7 mg/dL (0.7-1.3) Estimated GFR (Cockcroft-Gault) 138.9 116.2 Glucose Level 88 mg/dL (70-99) 95 mg/dL (70-99) Calcium Level 7.5 mg/dL (8.5-10.1) 7.4 mg/dL (8.5-10.1) Review of Systems Constitutional: yes: other (CONFUSED) Physical Exam General Appearance: no apparent distress Skin: warm Respiratory: bilateral CTA Heart: S1S2 Abdomen: soft, bowel sounds present Genitourinary: bladder flat Extremities: pulses present, edema Neurology: alert, confused Assessment Assessment IMP HYPONATREMIA HX OF PITUITARY ADENOMA RESECTION PROB ADRENAL INSUFFICIENCY PROB PNEUMONIA PLAN AGREE WITH STEROIDS 3% SALINE FOR NOW ANTIBIOTICS UPDATED WILL FOLLOW LABS PENDING BOSTON AGEE MD Jan 04, 2021 10:49
--- NOTE | 2021-01-04 11:03 | PDOC ---
[employer] PROGRESS NOTE Date of Service DOS: DATE: 01/04/21 TIME: 11:01 Chief Complaint Chief Complaint Assessment/Plan Generalized weakness Failure to thrive Acute electrolyte derangementsevere hyponatremia Community-acquired pneumonia, possible gram-negative organisms, possible aspiration Polydipsia Elevated AST ALT ratio History of pituitary adenoma Concern for adrenal insufficiency History of hypothyroidism Continue hypertonic saline Continue hydrocortisone Continue Synthroid Continue ICU monitoring due to severe low sodium Trend sodium every 12h Pending urine studies and serum and urine osmolalities Hypertonic saline Nephrology consult PT OT Continue empiric IV antibiotics Lovenox for DVT prophylaxis Protonix GI prophylaxis ADA diet CODE STATUS full Discussed with RN and GUY Disposition continue ICU care DPOA: History of Present Illness History of Present Illness 55-year-old male with past medical history of hyponatremia, pituitary adenoma status post resection, NHL status post chemotherapy and currently in remission who comes in with fatigue for the past 3 days. He says that he drinks lots of water and juice every day but this is not different from his normal. He also complains of cough with some mild production. He was actually seen at [facility] in 2019 for the same reason with low sodium and nausea vomiting that resolved. He was asked to follow-up with endocrinology for MRI evaluation of his pituitary gland but he never followed up. Denies fevers, chest pain, abdominal pain, diarrhea, seizure, confusion or headaches. 01/03/2021 No acute events overnight. Patient continues to feel fatigued and continues to have mildly productive cough. There is yellow phlegm. Not hypoxic or having any dyspnea. Patient's chart, labs, images were reviewed and discussed with RN 01/04/2021 No acute events overnight. Patient feels improved and more energy. Tolerating diet. No dyspnea. Patient's chart, labs, images were reviewed and discussed with RN Vitals/I&O Vitals/I&O: Vital Signs Date Time Temp Pulse Resp B/P (MAP) Pulse Ox O2 Delivery O2 Flow Rate FiO2 01/04/21 03:00 98.3 84 24 133/64 (87) 97 Room Air 98.3 I & O 01/03/21 01/03/21 01/04/21 15:00 23:00 07:00 Intake Total 561 ml 731 ml 552 ml Output Total 700 ml 2300 ml 2450 ml Balance -139 ml -1569 ml -1898 ml Physical Exam General: Alert, Oriented X3, Cooperative Heart: Regular rate Lungs: Crackles Abdomen: Normal bowel sounds Extremities: No clubbing Skin: No rashes Labs Labs: Laboratory Tests Test 01/03/21 14:05 01/03/21 21:50 01/04/21 04:30 Sodium Level 111 mmol/L (136-145) 115 mmol/L (136-145) 117 mmol/L (136-145) Potassium Level 4.3 mmol/L (3.5-5.1) 4.7 mmol/L (3.5-5.1) Chloride Level 84 mmol/L (98-107) 86 mmol/L (98-107) Carbon Dioxide Level 23 mmol/L (21-32) 21 mmol/L (21-32) Anion Gap 8 (6-14) 10 (6-14) Blood Urea Nitrogen 7 mg/dL (8-26) 5 mg/dL (8-26) Creatinine 0.6 mg/dL (0.7-1.3) 0.7 mg/dL (0.7-1.3) Estimated GFR (Cockcroft-Gault) 138.9 116.2 Glucose Level 88 mg/dL (70-99) 95 mg/dL (70-99) Calcium Level 7.5 mg/dL (8.5-10.1) 7.4 mg/dL (8.5-10.1) Comment Review of Relevant I have reviewed the following items jorge (where applicable) has been applied. Medications: Current Medications Medications (Trade) Dose Ordered Sig/Merissa Route PRN Reason Start Time Stop Time Status Last Admin Dose Admin Ceftriaxone Sodium (Rocephin) 1 gm Q24H IVP 01/03/21 13:00 01/03/21 13:03 Azithromycin 500 mg/Sodium Chloride 250 ml @ 250 mls/hr Q24H IV 01/03/21 13:00 01/03/21 13:03 Levothyroxine Sodium (Synthroid) 25 mcg DAILY06 PO 01/03/21 14:30 01/04/21 06:04 Hydrocortisone (Cortef) 20 mg DAILYWBKFT PO 01/04/21 08:00 01/04/21 09:27 Hydrocortisone (Cortef) 10 mg DAILYBFRSUP PO 01/03/21 17:00 01/03/21 19:23 Enoxaparin Sodium (Lovenox 40mg Syringe) 40 mg Q24H SQ 01/03/21 15:00 01/03/21 14:53 Justifications for Admission Other Justification RISHI TRIPATHI MD Jan 04, 2021 11:03
[2021-01-04 12:00] VITALS: BP 139/70
[2021-01-04] MEDS: BENZONATATE 100 MG CAPSULE. PO PRN (12:06)
[2021-01-04] MEDS: guaiFENesin ORAL 200 MG/10 ML LIQUID. PO PRN ×3 (12:06→22:46)
[2021-01-04] MEDS: AZITHROMYCIN 500 MG in IV NORMAL SALINE 250ML 250 ML IV SCH (12:07)
[2021-01-04] MEDS: cefTRIAXone IV Push 1 GM VIAL. IVP SCH (12:45)
[2021-01-04 16:00] VITALS: BP 123/74
[2021-01-04] MEDS: ENOXAPARIN 40 MG/0.4 ML SYRINGE. SQ SCH (16:40)
[2021-01-04 20:00] VITALS: BP 120/68
[2021-01-05] VITALS: BP 116/52
[2021-01-05 04:00] VITALS: BP 130/55
[2021-01-05 05:11] LABS: CALCIUM 8.3 mg/dL (8.5-10.1); CREATININE 0.8 mg/dL (0.7-1.3); GFR 99.6; POTASSIUM 4.5 mmol/L (3.5-5.1)
[2021-01-05] MEDS: SODIUM CHLORIDE 3 % 500 ML IV PRN (05:16)
[2021-01-05] MEDS: LEVOTHYROXINE 25 MCG TABLET. PO SCH (05:17)
[2021-01-05 08:00] VITALS: BP 124/60
[2021-01-05] MEDS: HYDROCORTISONE 10 MG TABLET PO SCH ×2 (08:41→17:52)
--- NOTE | 2021-01-05 10:35 | PDOC ---
Renal-Progress Notes Subjective Notes Notes FEELING MUCH BETTER History of Present Illness Hx of present illness STABLE Vitals Vitals Vital Signs Date Time Temp Pulse Resp B/P (MAP) Pulse Ox O2 Delivery O2 Flow Rate FiO2 01/05/21 08:00 98.1 84 16 124/60 (81) 98 Room Air 98.1 Weight Weight [ ] I.O. Intake and Output Intake and Output 01/05/21 07:00 Intake Total 4680 ml Output Total 7900 ml Balance -3220 ml Intake Oral 3900 ml Other 780 ml Output Urine Total 7900 ml Labs Labs Laboratory Tests Test 01/04/21 12:15 01/04/21 16:20 01/04/21 20:20 01/05/21 00:40 Sodium Level 119 mmol/L (136-145) 123 mmol/L (136-145) 126 mmol/L (136-145) 129 mmol/L (136-145) Test 01/05/21 04:30 01/05/21 08:10 Sodium Level 131 mmol/L (136-145) 130 mmol/L (136-145) Potassium Level 4.5 mmol/L (3.5-5.1) Chloride Level 98 mmol/L (98-107) Carbon Dioxide Level 29 mmol/L (21-32) Anion Gap 4 (6-14) Blood Urea Nitrogen 7 mg/dL (8-26) Creatinine 0.8 mg/dL (0.7-1.3) Estimated GFR (Cockcroft-Gault) 99.6 Glucose Level 100 mg/dL (70-99) Calcium Level 8.3 mg/dL (8.5-10.1) Review of Systems Constitutional: yes: alert, oriented, other (CONFUSED) Ears/Nose/Throat: Yes: no symptom reported Eyes: Yes: no symptom reported Pulmonary: Yes no symptom reported Cardiovascular: Yes no symptom reported Gastrointestional: Yes: no symptom reported Genitourinary: Yes: no symptom reported Musculoskeletal: Yes: no symptom reported Skin: Yes no symptom reported Psychiatric/Neurological: Yes: no symptom reported Endocrine: Yes: no symptom reported Physical Exam General Appearance: no apparent distress Skin: warm Respiratory: bilateral CTA Heart: S1S2 Abdomen: soft, bowel sounds present Genitourinary: bladder flat Extremities: pulses present, edema Neurology: alert, oriented, follow commands Assessment Assessment IMP HYPONATREMIA-NA UP TO 130 FROM 111 IN 48 HRS HX OF PITUITARY ADENOMA RESECTION PROB ADRENAL INSUFFICIENCY PROB PNEUMONIA PLAN AGREE WITH STEROIDS STOP 3% SALINE ANTIBIOTICS UPDATED WILL FOLLOW BOSTON AGEE MD Jan 05, 2021 10:35
[2021-01-05 12:09] VITALS: BP 132/44
--- NOTE | 2021-01-05 12:16 | PDOC ---
[employer] PROGRESS NOTE Date of Service DOS: DATE: 01/05/21 TIME: 12:14 Chief Complaint Chief Complaint Assessment/Plan Generalized weakness Failure to thrive Acute electrolyte derangementsevere hyponatremia Community-acquired pneumonia, possible gram-negative organisms, possible aspiration Polydipsia Elevated AST ALT ratio History of pituitary adenoma Concern for adrenal insufficiency History of hypothyroidism Continue hypertonic saline Continue hydrocortisone Continue Synthroid Continue ICU monitoring due to severe low sodium Trend sodium every 12h Pending urine studies and serum and urine osmolalities Hypertonic saline Nephrology consult PT OT Continue empiric IV antibiotics Lovenox for DVT prophylaxis Protonix GI prophylaxis ADA diet CODE STATUS full Discussed with RN and GUY Disposition continue ICU care DPOA: History of Present Illness History of Present Illness 55-year-old male with past medical history of hyponatremia, pituitary adenoma status post resection, NHL status post chemotherapy and currently in remission who comes in with fatigue for the past 3 days. He says that he drinks lots of water and juice every day but this is not different from his normal. He also complains of cough with some mild production. He was actually seen at [facility] in 2019 for the same reason with low sodium and nausea vomiting that resolved. He was asked to follow-up with endocrinology for MRI evaluation of his pituitary gland but he never followed up. Denies fevers, chest pain, abdominal pain, diarrhea, seizure, confusion or headaches. 01/03/2021 No acute events overnight. Patient continues to feel fatigued and continues to have mildly productive cough. There is yellow phlegm. Not hypoxic or having any dyspnea. Patient's chart, labs, images were reviewed and discussed with RN 01/04/2021 No acute events overnight. Patient feels improved and more energy. Tolerating diet. No dyspnea. Patient's chart, labs, images were reviewed and discussed with RN 01/05/2021 No acute events overnight. Patient's symptoms have improved feeling better. Sodium improved to 131.. Hypertonic saline. Continue with IV antibiotics. Can transition to p.o. antibiotics tomorrow and anticipate for discharge on Wednesday. Patient will need to have compliance and set up for close follow-up with PCP before discharge. Repeat sodium in the morning. Vitals/I&O Vitals/I&O: Vital Signs Date Time Temp Pulse Resp B/P (MAP) Pulse Ox O2 Delivery O2 Flow Rate FiO2 01/05/21 12:09 98.6 88 14 132/44 (73) 98 Room Air 98.6 I & O 01/04/21 01/04/21 01/05/21 15:00 23:00 07:00 Intake Total 1980 ml 2700 ml Output Total 3300 ml 4600 ml Balance -1320 ml -1900 ml Physical Exam General: Alert, Oriented X3, Cooperative Heart: Regular rate Lungs: Crackles Abdomen: Normal bowel sounds Extremities: No clubbing Skin: No rashes Labs Labs: Laboratory Tests Test 01/04/21 12:15 01/04/21 16:20 01/04/21 20:20 01/05/21 00:40 Sodium Level 119 mmol/L (136-145) 123 mmol/L (136-145) 126 mmol/L (136-145) 129 mmol/L (136-145) Test 01/05/21 04:30 01/05/21 08:10 Sodium Level 131 mmol/L (136-145) 130 mmol/L (136-145) Potassium Level 4.5 mmol/L (3.5-5.1) Chloride Level 98 mmol/L (98-107) Carbon Dioxide Level 29 mmol/L (21-32) Anion Gap 4 (6-14) Blood Urea Nitrogen 7 mg/dL (8-26) Creatinine 0.8 mg/dL (0.7-1.3) Estimated GFR (Cockcroft-Gault) 99.6 Glucose Level 100 mg/dL (70-99) Calcium Level 8.3 mg/dL (8.5-10.1) Comment Review of Relevant I have reviewed the following items jorge (where applicable) has been applied. Justifications for Admission Other Justification RISHI TRIPATHI MD Jan 05, 2021 12:15
[2021-01-05] MEDS: AZITHROMYCIN 500 MG in IV NORMAL SALINE 250ML 250 ML IV SCH (12:57)
[2021-01-05] MEDS: cefTRIAXone IV Push 1 GM VIAL. IVP SCH (12:57)
[2021-01-05] MEDS: ENOXAPARIN 40 MG/0.4 ML SYRINGE. SQ SCH (14:59)
[2021-01-05 16:34] VITALS: BP 122/60
[2021-01-05 21:00] VITALS: BP 142/61
[2021-01-06 05:00] VITALS: BP 129/78
[2021-01-06 05:10] LABS: CREATININE 0.7 mg/dL (0.7-1.3); GFR 116.2
[2021-01-06] MEDS: LEVOTHYROXINE 25 MCG TABLET. PO SCH (06:40)
--- NOTE | 2021-01-06 07:08 | PDOC ---
[employer] PROGRESS NOTE Date of Service DOS: DATE: 01/06/21 TIME: 07:04 Chief Complaint Chief Complaint Assessment/Plan Generalized weakness Failure to thrive Acute electrolyte derangementsevere hyponatremia Community-acquired pneumonia, possible gram-negative organisms, possible aspiration Polydipsia Elevated AST ALT ratio History of pituitary adenoma Concern for adrenal insufficiency History of hypothyroidism Continue hypertonic saline Continue hydrocortisone Continue Synthroid Continue ICU monitoring due to severe low sodium Trend sodium every 12h Pending urine studies and serum and urine osmolalities Hypertonic saline Nephrology consult PT OT Continue empiric IV antibiotics Lovenox for DVT prophylaxis Protonix GI prophylaxis ADA diet CODE STATUS full Discussed with RN and GUY Disposition continue ICU care DPOA: History of Present Illness History of Present Illness 55-year-old male with past medical history of hyponatremia, pituitary adenoma status post resection, NHL status post chemotherapy and currently in remission who comes in with fatigue for the past 3 days. He says that he drinks lots of water and juice every day but this is not different from his normal. He also complains of cough with some mild production. He was actually seen at [facility] in 2019 for the same reason with low sodium and nausea vomiting that resolved. He was asked to follow-up with endocrinology for MRI evaluation of his pituitary gland but he never followed up. Denies fevers, chest pain, abdominal pain, diarrhea, seizure, confusion or headaches. 01/03/2021 No acute events overnight. Patient continues to feel fatigued and continues to have mildly productive cough. There is yellow phlegm. Not hypoxic or having any dyspnea. Patient's chart, labs, images were reviewed and discussed with RN 01/04/2021 No acute events overnight. Patient feels improved and more energy. Tolerating diet. No dyspnea. Patient's chart, labs, images were reviewed and discussed with RN 01/05/2021 No acute events overnight. Patient's symptoms have improved feeling better. Sodium improved to 131.. Hypertonic saline. Continue with IV antibiotics. Can transition to p.o. antibiotics tomorrow and anticipate for discharge on Wednesday. Patient will need to have compliance and set up for close follow-up with PCP before discharge. Repeat sodium in the morning. 01/06: Afebrile. Sodium 132 today. 3% saline has been discontinued. Continue hydrocortisone and provide prescription upon discharge. He may also be discharged on doxycycline twice daily to complete his pneumonia treatment. Recommended he establish PCP within 3-5 days. >30 minutes spent managing the discharge of this patient. Vitals/I&O Vitals/I&O: Vital Signs Date Time Temp Pulse Resp B/P (MAP) Pulse Ox O2 Delivery O2 Flow Rate FiO2 01/06/21 05:00 98.5 88 18 129/78 (95) 96 Room Air 98.5 I & O 01/05/21 01/05/21 01/06/21 15:00 23:00 07:00 Intake Total 2250 ml 1400 ml Output Total 1300 ml 2275 ml Balance 950 ml -875 ml Physical Exam General: Alert, Oriented X3, Cooperative Heart: Regular rate Lungs: Crackles Abdomen: Normal bowel sounds Extremities: No clubbing Skin: No rashes Labs Labs: Laboratory Tests Test 01/05/21 08:10 01/06/21 04:48 Sodium Level 130 mmol/L (136-145) 132 mmol/L (136-145) Potassium Level 4.0 mmol/L (3.5-5.1) Chloride Level 97 mmol/L (98-107) Carbon Dioxide Level 27 mmol/L (21-32) Anion Gap 8 (6-14) Blood Urea Nitrogen 7 mg/dL (8-26) Creatinine 0.7 mg/dL (0.7-1.3) Estimated GFR (Cockcroft-Gault) 116.2 Glucose Level 104 mg/dL (70-99) Calcium Level 8.0 mg/dL (8.5-10.1) Comment Review of Relevant I have reviewed the following items jorge (where applicable) has been applied. Justifications for Admission Other Justification JORDEN BADILLO MD Jan 06, 2021 07:08
[2021-01-06 08:00] VITALS: BP 155/88
[2021-01-06] MEDS: HYDROCORTISONE 10 MG TABLET PO SCH (09:05)
--- NOTE | 2021-01-06 09:21 | PDOC ---
DATE OF SERVICE DATE: 01/06/21 TIME: 09:13 SUBJECTIVE ROS Stable OBJECTIVE Vital Signs Vital Signs Date Time Temp Pulse Resp B/P (MAP) Pulse Ox O2 Delivery O2 Flow Rate FiO2 01/06/21 05:00 98.5 88 18 129/78 (95) 96 Room Air 98.5 I & 0 Intake and Output 01/06/21 07:00 Intake Total 3650 ml Output Total 3575 ml Balance 75 ml Intake Oral 3400 ml IV Total 250 ml Output Urine Total 3575 ml PHYSICAL EXAM Physical Exam General NAD, HEEN OM moist, Neck Supple Lungs CTA , Non labored CV S1S2, No M/R/G Abdomen obese , NT, Soft Sotelo placed , No CVA or SP tenderness Neuro AxOx3, grossly normal Derm No Rash Ext No LE edema, No cyanosis DIAGNOSIS/ASSESSMENT Assessment & Plan HypoNatremia- severe POA , I had orderd all moore ay presentation Serum Cortisol low marquis with Hx of Pituitary tumor (Resected ) - Currently on steroids , Na improving , still not at goal Reviewed Records from [facility] from 2019 Hx of NHL and, CxR Atypical pneumonia . No cirrhosis, ETOH, DM , CHF , Psych meds or Smoking Hx. Drinks large amount of fluids . Urinary retention - POA on Bladder scan . Polyuric for last few days; Improved Pneumonia - reported on Cxr, deferred to primary Hx of NHL in remission per Patient and Hx of pituitary tumor Post resection years ago Elevated LFT's POA COMMENT/RELEVANT DATA Meds Current Medications Medications (Trade) Dose Ordered Sig/Merissa Start Time Stop Time Status Last Admin Dose Admin Acetaminophen (Tylenol) 650 mg PRN Q6HRS PRN 01/02/21 23:15 01/02/21 23:09 650 MG Azithromycin 500 mg/Sodium Chloride 250 ml @ 250 mls/hr Q24H 01/03/21 13:00 01/05/21 12:57 250 MLS/HR Benzonatate (Tessalon Perle) 100 mg PRN Q8HRS PRN 01/02/21 21:15 01/04/21 12:06 100 MG Calcium Carbonate/ Glycine (Tums) 500 mg PRN AFTMEALHC PRN 01/03/21 03:15 01/03/21 03:24 500 MG Ceftriaxone Sodium (Rocephin) 1 gm Q24H 01/03/21 13:00 01/05/21 12:57 1 GM Enoxaparin Sodium (Lovenox 40mg Syringe) 40 mg Q24H 01/03/21 15:00 01/05/21 14:59 40 MG Guaifenesin (Robitussin) 200 mg PRN Q4HRS PRN 01/03/21 06:15 01/04/21 22:46 200 MG Hydrocortisone (Cortef) 10 mg DAILYBFRSUP 01/03/21 17:00 01/05/21 17:52 10 MG Levothyroxine Sodium (Synthroid) 25 mcg DAILY06 01/03/21 14:30 01/06/21 06:40 25 MCG Lidocaine (Lidoderm) 1 patch PRN DAILY PRN 01/02/21 23:15 01/03/21 08:58 1 PATCH Methocarbamol (Robaxin) 500 mg PRN Q8HRS PRN 01/02/21 23:15 01/03/21 21:04 500 MG Sodium Chloride 500 ml @ 50 mls/hr CONT PRN 01/03/21 09:45 01/05/21 10:56 DC 01/05/21 05:16 50 MLS/HR Zolpidem Tartrate (Ambien) 5 mg 1X PRN PRN 01/03/21 20:45 01/03/21 23:00 DC Lab Laboratory Tests Test 01/06/21 04:48 Sodium Level 132 mmol/L (136-145) Potassium Level 4.0 mmol/L (3.5-5.1) Chloride Level 97 mmol/L (98-107) Carbon Dioxide Level 27 mmol/L (21-32) Anion Gap 8 (6-14) Blood Urea Nitrogen 7 mg/dL (8-26) Creatinine 0.7 mg/dL (0.7-1.3) Estimated GFR (Cockcroft-Gault) 116.2 Glucose Level 104 mg/dL (70-99) Calcium Level 8.0 mg/dL (8.5-10.1) Results All relevant outside records, renal labs, imaging studies, telemetry/EKG's were reviewed. Justicifation of Admission Dx: Justifications for Admission: Justification of Admission Dx: N/A NICOLAS BRITTON MD Jan 06, 2021 09:21
--- NOTE | 2021-01-06 09:33 | PDOC3 ---
Discharge Summary Visit Information Date of Admission: Jan 02, 2021 Date of Discharge: Jan 06, 2021 Brief Hospital Course Allergies Allergies Coded Allergies Type Severity Reaction Last Updated Verified No Known Drug Allergies 10/11/13 No Vital Signs Vital Signs Date Time Temp Pulse Resp B/P (MAP) Pulse Ox O2 Delivery O2 Flow Rate FiO2 01/06/21 05:00 98.5 88 18 129/78 (95) 96 Room Air 98.5 Lab Results Laboratory Tests Test 01/04/21 12:15 01/04/21 16:20 01/04/21 20:20 01/05/21 00:40 Sodium Level 119 mmol/L (136-145) 123 mmol/L (136-145) 126 mmol/L (136-145) 129 mmol/L (136-145) Test 01/05/21 04:30 01/05/21 08:10 01/06/21 04:48 Sodium Level 131 mmol/L (136-145) 130 mmol/L (136-145) 132 mmol/L (136-145) Potassium Level 4.5 mmol/L (3.5-5.1) 4.0 mmol/L (3.5-5.1) Chloride Level 98 mmol/L (98-107) 97 mmol/L (98-107) Carbon Dioxide Level 29 mmol/L (21-32) 27 mmol/L (21-32) Anion Gap 4 (6-14) 8 (6-14) Blood Urea Nitrogen 7 mg/dL (8-26) 7 mg/dL (8-26) Creatinine 0.8 mg/dL (0.7-1.3) 0.7 mg/dL (0.7-1.3) Estimated GFR (Cockcroft-Gault) 99.6 116.2 Glucose Level 100 mg/dL (70-99) 104 mg/dL (70-99) Calcium Level 8.3 mg/dL (8.5-10.1) 8.0 mg/dL (8.5-10.1) Laboratory Tests Test 01/06/21 04:48 Sodium Level 132 mmol/L (136-145) Potassium Level 4.0 mmol/L (3.5-5.1) Chloride Level 97 mmol/L (98-107) Carbon Dioxide Level 27 mmol/L (21-32) Anion Gap 8 (6-14) Blood Urea Nitrogen 7 mg/dL (8-26) Creatinine 0.7 mg/dL (0.7-1.3) Estimated GFR (Cockcroft-Gault) 116.2 Glucose Level 104 mg/dL (70-99) Calcium Level 8.0 mg/dL (8.5-10.1) Brief Hospital Course Mr. Serrano is a 55 old male who presented with: Acute electrolyte derangement - severe hyponatremia Generalized weakness Failure to thrive Community-acquired pneumonia, possible gram-negative organisms, possible aspiration Polydipsia Elevated AST ALT ratio History of pituitary adenoma Concern for adrenal insufficiency History of hypothyroidism 55-year-old male with past medical history of hyponatremia, pituitary adenoma status post resection, NHL status post chemotherapy and currently in remission who comes in with fatigue for the past 3 days. He says that he drinks lots of water and juice every day but this is not different from his normal. He also complains of cough with some mild production. He was actually seen at [facility] in 2019 for the same reason with low sodium and nausea vomiting that resolved. He was asked to follow-up with endocrinology for MRI evaluation of his pituitary gland but he never followed up. Denies fevers, chest pain, abdominal pain, diarrhea, seizure, confusion or headaches. 01/03/2021 No acute events overnight. Patient continues to feel fatigued and continues to have mildly productive cough. There is yellow phlegm. Not hypoxic or having any dyspnea. Patient's chart, labs, images were reviewed and discussed with RN 01/04/2021 No acute events overnight. Patient feels improved and more energy. Tolerating diet. No dyspnea. Patient's chart, labs, images were reviewed and discussed with RN 01/05/2021 No acute events overnight. Patient's symptoms have improved feeling better. Sodium improved to 131.. Hypertonic saline. Continue with IV antibiotics. Can transition to p.o. antibiotics tomorrow and anticipate for discharge on Wednesday. Patient will need to have compliance and set up for close follow-up with PCP be fore discharge. Repeat sodium in the morning. 01/06: Afebrile. Sodium 132 today. 3% saline has been discontinued. Continue h ydrocortisone and provide prescription upon discharge. He may also be discharged on doxycycline twice daily to complete his pneumonia treatment. Recommended he establish PCP within 3-5 days. >30 minutes spent managing the discharge of this patient. Discharge Information Condition at Discharge: Improved Disposition/Orders: D/C to Home Scheduled Info (No Known Medications Prior To Admisstion) Each, 1 EACH 1X for no known medication, (Reported) Entered as Reported by: COLEEN BENAVIDES on 01/02/211848 Last Action: New Order on 01/02/211848 by COLEEN BENAVIDES Justicifation of Admission Dx: Justifications for Admission: Justification of Admission Dx: Yes JORDEN BADILLO MD Jan 06, 2021 09:33
[2021-01-06] MEDS ORDERED: LEVO25TA4 PO (09:35)
--- NOTE | 2021-01-06 11:03 | NUR ---
SS following up with discharge planning. SS reviewed pt chart and discussed with pt RN. Pt is currently on room air. Pt switched to PO antibiotics. Discharge order on the chart for home with self care. Pt to follow up with PCP.
--- NOTE | 2021-01-06 11:27 | NUR ---
Patient discharged home via private vehicle he was accompanied by at time of discharge and transportation williams wheelchair. all lines and drains removed prior to discharge. Patient given scripts and discharge instructions at time of discharge. Patient stable at time of discharge.
== END 2021-01-06 14:30 | disposition home or self-care (01) | DRG 178 ==
LOC: 1 WEST ICU 18:00
PROVIDERS: ADMIT Internal Medicine; ATTEND Internal Medicine
DX: J69.0 Pneumonitis due to inhalation of food and vomit (principal); E27.40 Unspecified adrenocortical insufficiency; E87.1 Hypo-osmolality and hyponatremia; J15.6 Pneumonia due to other Gram-negative bacteria; E03.9 Hypothyroidism, unspecified; R62.7 Adult failure to thrive; R74.01 Elevation of levels of liver transaminase levels; R63.1 Polydipsia; R33.9 Retention of urine, unspecified; R79.89 Other specified abnormal findings of blood chemistry; Z85.72 Personal history of non-Hodgkin lymphomas; Z92.21 Personal history of antineoplastic chemotherapy
CPT/HCPCS: 36415; 76700; 80048; 80053; 81001; 82436; 82533; 83735; 83930; 83935; 84133; 84295; 84300; 84439; 84443; 84550; 85027; 87449; 87641; J0456; J0696; J1650; J3490; J7030; J7050; G0378